=== PATIENT | female | born 1935 | race Native Hawaiian/Other Pacific Islander ===

== ENCOUNTER 2019-04-18 17:04 | Emergency (ER) | END 2019-04-18 19:23 | disposition home or self-care (01) | DX: R00.2 Palpitations (principal); I35.0 Nonrheumatic aortic (valve) stenosis; E11.9 Type 2 diabetes mellitus without complications; N28.9 Disorder of kidney and ureter, unspecified; I10 Essential (primary) hypertension; Z88.2 Allergy status to sulfonamides; Z79.4 Long term (current) use of insulin; Z79.899 Other long term (current) drug therapy; Z79.82 Long term (current) use of aspirin ==

== ENCOUNTER 2021-06-18 20:19 | Inpatient (IN) | payer MEDICARE, OTHER ==
[~2021-06-18] VITALS: Ht 160 cm; Wt 59.0 kg
[~2021-06-18 20:19] MED LIST: AMLO10TA4 PO; APIX2.5T PO; ATOR20TA PO; BIMA2.5D5 EACHEYE; CALC0.253 PO; FURO-151 PO; HYDR-4075 PO; INSU200I4 SQ; LOPE2TAB25 PO; LOSA100T31 PO; OMEG1CAP55 PO; RANI150C4 PO; UBIQ100C2 PO
[2021-06-18 21:02] LABS: HEMATOCRIT 32.8 % (31.2-41.9); MEAN CORPUSCULAR HEMOGLOBIN 29.7 uug (24.7-32.8); MEAN CORPUSCULAR VOLUME 92.1 fL (75.5-95.3); PLATELET COUNT (AUTO) 272 K/uL (179-408)
[2021-06-18 21:45] LABS: ALANINE AMINOTRANSFERASE 18 U/L (14-59); ALKALINE PHOSPHATASE 80 U/L (50-136); ASPARTATE AMINOTRANSFERASE 14 U/L (15-37); BILIRUBIN,DIRECT 0.1 mg/dL (0.0-0.2); BILIRUBIN,TOTAL 0.3 mg/dL (0.2-1.0); CARBON DIOXIDE 18 mmol/L (21-32); CHLORIDE 97 mmol/L (98-107); CREATININE 4.3 mg/dL (0.6-1.3); GLUCOSE 239 mg/dL (74-106); TOTAL PROTEIN, SERUM 7.4 g/dL (6.4-8.2); UREA NITROGEN, BLOOD 70 mg/dL (7-18)
[2021-06-18 21:52] LABS: POTASSIUM 6.8 mmol/L (3.5-5.1)
[2021-06-18] MEDS ORDERED: CALCIUM GLUCONATE IV 1 GM in IV NORMAL SALINE 100 ML IV ONE ×2 (22:30→23:30)
[2021-06-18] MEDS ORDERED: ALBUTEROL SULFATE 2.5 MG/3 ML NEBU NEB ONE (22:30)
[2021-06-18] MEDS ORDERED: INSULIN REGULAR, HUMAN 10 UNIT in IV NORMAL SALINE 100 ML IV ONE ×2 (22:30)
[2021-06-18] MEDS ORDERED: DEXTROSE 50% 50 ML DISP.SYRIN IV ONE (22:30)
[2021-06-18] MEDS ORDERED: CALCIUM GLUCONATE 1 GM/10 ML VIAL IV ONE (22:41)
[2021-06-18] MEDS ORDERED: ALBUTEROL SULFATE 2.5 MG/ 0.5 ML NEBU ONE (22:56)
--- NOTE | 2021-06-18 22:59 | NUR ---
PAGED EPIC PANEL POLISHER NUMERAL, WAITING FOR DR JARAMILLO TO CALL BACK.
--- NOTE | 2021-06-18 23:15 | NUR ---
DR MAR SPOKE TO DR JARAMILLO WHO ACCEPTS PATIENT TO INPATIENT TELE.
--- NOTE | 2021-06-18 23:35 | NUR ---
PATIENT AND DAUGHTER UNABLE TO RECALL HOME MEDICATIONS AT THIS TIME.
[2021-06-18 23:40] LABS: *BILIRUBIN,URIN NEGATIVE (NEGATIVE); *BLOOD, URINE NEGATIVE (NEGATIVE); *COLOR,URINE YELLOW (YELLOW); *KETONES,URINE TRACE (NEGATIVE); *UROBILINOGEN,URINE 0.2 E.U./dl (NORMAL); LEUKOCYTE ESTERASE ,URINE TRACE (NEGATIVE); NITRITE, URINE NEGATIVE (NEGATIVE); UGLUCOSE NEGATIVE (NEGATIVE)
[2021-06-18 23:46] LABS: *CLARITY,URINE HAZY (CLEAR)
[2021-06-19] VITALS (9 sets, daily range): BP systolic 137–189; BP diastolic 34–97
[2021-06-19 00:07] LABS: BACTERIA,URINE MODERATE /HPF (NONE SEEN); SQUAMOUS EPITHELIAL CELL,UR MODERATE /HPF (NONE SEEN)
[2021-06-19] MEDS ORDERED: CALCIUM GLUCONATE 1 GM/10 ML VIAL IV ONE (00:27)
[2021-06-19] MEDS ORDERED: INSULIN REGULAR, HUMAN 300 UNIT/3 ML VIAL ONE (01:14)
[2021-06-19] MEDS ORDERED: INSULIN REGULAR, HUMAN 300 UNIT/3 ML VIAL IV ONE (01:15)
--- NOTE | 2021-06-19 01:20 | NUR ---
TRANSFERED PATIENT TO 3RD FLOOR VIA GURNY WITH NO DISTRESS NOTED.
--- NOTE | 2021-06-19 01:25 | NUR ---
Received patient via gurney. Pt is admitted to Room 329-Tele, under care of Dr. Garnett with admitting diagnosis of hyperkalemia. AAOX4, Vietnamese speaking and limited Kazakh. Able to ambulate to the bed, however, gait is unsteady. Able to make needs known.Established nurse patient rapport. Oriented patient to room, bed and call light button. Initial assessment done. Attached to telemonitor, showing sinus bradycardia - sinus tachycardia. On room air. IV access at R hand 20 gauge, patent and intact. No skin issues noted. Safety and aspiration precautions initiated. Will continue to monitor.
[2021-06-19] MEDS ORDERED: ACETAMINOPHEN 325 MG TABLET PO PRN (02:00)
[2021-06-19] MEDS ORDERED: HYDROCODONE/APAP 5-325MG TABLET PO PRN (02:00)
[2021-06-19] MEDS ORDERED: ONDANSETRON 4 MG/2 ML VIAL IV PRN (02:00)
--- NOTE | 2021-06-19 04:15 | NUR ---
Per ER nurse and patient, patient wishes to have a DNR status, daughter will bring paper working tomorrow together with medication list. Daughter's name is Maribel, contact number is [phone].
[2021-06-19] MEDS: PANTOPRAZOLE SODIUM 40 MG TABLET.DR PO SCH (06:08)
--- NOTE | 2021-06-19 06:43 | NUR ---
Patient slept intermittently through the night. Sinus bradycardia on telemonitor, with occasional episodes of sinus junction. No acute distress noted. IV access patent and intact. All needs attended to and met. Safety precautions maintained. Will endorse to day shift.
[2021-06-19] MEDS ORDERED: SODIUM BICARBONATE 8.4% 100 MEQ in IV D5 1/2 NS 1000 ML 1,000 ML IV PRN (06:45)
[2021-06-19] MEDS ORDERED: SODIUM POLYSTYRENE SULFONATE 15 G/60 ML LIQUID UDC PO ONE (06:45)
[2021-06-19 07:29] LABS: ALANINE AMINOTRANSFERASE 19 U/L (14-59); ALKALINE PHOSPHATASE 72 U/L (50-136); ASPARTATE AMINOTRANSFERASE 15 U/L (15-37); BILIRUBIN,TOTAL 0.3 mg/dL (0.2-1.0); CARBON DIOXIDE 17 mmol/L (21-32); CHLORIDE 97 mmol/L (98-107); CHOLESTEROL 94 mg/dL (<200); CREATININE 4.6 mg/dL (0.6-1.3); GLUCOSE 239 mg/dL (74-106); HDL CHOLESTEROL 37 mg/dL (40-60); MAGNESIUM 3.2 mg/dL (1.8-2.4); PHOSPHOROUS 6.9 mg/dL (2.5-4.9); POTASSIUM 5.9 mmol/L (3.5-5.1); TOTAL PROTEIN, SERUM 7.1 g/dL (6.4-8.2); TRIGLYCERIDES 112 MG/DL (30-150); UREA NITROGEN, BLOOD 76 mg/dL (7-18)
[2021-06-19] MEDS ORDERED: CALCIUM GLUCONATE IV 1 GM in IV NORMAL SALINE 100 ML IV ONE (07:45)
[2021-06-19 07:52] LABS: THYROID STIMULATING HORMONE 4.161 mIU/mL (0.358-3.740)
[2021-06-19] MEDS: SODIUM BICARBONATE 8.4% 100 MEQ in IV D5 1/2 NS 1000 ML 1,000 ML IV PRN (10:39)
[2021-06-19] MEDS ORDERED: CEFTRIAXONE 1 G in IV DEXTROSE 5% 50 ML IV SCH (12:30)
[2021-06-19] MEDS ORDERED: NIFE90TA2 PO (15:22)
[2021-06-19] MEDS ORDERED: CARV6.252 PO (15:23)
[2021-06-19] MEDS ORDERED: ATOR20TA PO (15:24)
--- NOTE | 2021-06-19 15:50 | NUR ---
PT BROUGHT DOWN TO CCU FOR CLOSE MONITORING, PT DX HYPERKALEMIA. MED LIST GIVEN TO PHARMACY, PT IN BED 2, A/OX4, CALL LIGHT WITHIN REACH, UNSTEADY GAIT, BRP, PT ON ROOM AIR, PENDING STAT EKG AND CMP AND BLOOD CULTURES
--- NOTE | 2021-06-19 15:50 | NUR ---
Patient transferred to CCU. Patient awake, alert and orientedx4. On room air. No signs of acute distress. Patient wheeled to CCU.
[2021-06-19] MEDS ORDERED: NIFE30TA2 PO (16:03)
[2021-06-19] MEDS ORDERED: FURO40TA5 PO ×2 (16:04→16:05)
[2021-06-19] MEDS ORDERED: APIX2.5T PO (16:04)
[2021-06-19] MEDS ORDERED: HYDR100T27 PO (16:06)
[2021-06-19] MEDS ORDERED: LOSA100T31 PO (16:07)
[2021-06-19] MEDS ORDERED: NOVOLOG SS (16:12)
[2021-06-19] MEDS ORDERED: INSULIN DEGLUDEC (16:12)
[2021-06-19 16:25] LABS: HEMATOCRIT 34.3 % (31.2-41.9); MEAN CORPUSCULAR HEMOGLOBIN 29.4 uug (24.7-32.8); MEAN CORPUSCULAR VOLUME 97.1 fL (75.5-95.3); PLATELET COUNT (AUTO) 125 K/uL (179-408)
[2021-06-19 16:28] LABS: ALANINE AMINOTRANSFERASE 13 U/L (14-59); ALKALINE PHOSPHATASE 68 U/L (50-136); ASPARTATE AMINOTRANSFERASE 15 U/L (15-37); BILIRUBIN,TOTAL 0.2 mg/dL (0.2-1.0); CARBON DIOXIDE 19 mmol/L (21-32); CHLORIDE 97 mmol/L (98-107); CREATININE 4.7 mg/dL (0.6-1.3); GLUCOSE 350 mg/dL (74-106); MAGNESIUM 3.3 mg/dL (1.8-2.4); PHOSPHOROUS 7.2 mg/dL (2.5-4.9); POTASSIUM 5.2 mmol/L (3.5-5.1); TOTAL PROTEIN, SERUM 7.4 g/dL (6.4-8.2); UREA NITROGEN, BLOOD 75 mg/dL (7-18)
[2021-06-19] MEDS: hydrALAZINE HCL 25 MG TABLET PO PRN (16:38)
[2021-06-19] MEDS ORDERED: DEXTROSE 50% 50 ML DISP.SYRIN IV PRN (18:00)
--- NOTE | 2021-06-19 18:00 | NUR ---
PER FAMILY, PT IS INSULIN DEPENDANT AT HOME, CONTACTED [facility] TO ORDER INSULIN AND ACCUCHECKS. ORDERS IN PLACE. NOTIFIED [facility] TO RECONCILE MEDICATIONS. WILL CONTINUE TO MONITOR.
[2021-06-19] MEDS: BLOOD SUGAR DIAGNOSTIC 1 EACH STRIP VI SCH ×2 (18:02→20:58)
[2021-06-19] MEDS: INSULIN REGULAR, HUMAN 300 UNIT/3 ML VIAL SQ PRN ×2 (18:08→21:06)
--- NOTE | 2021-06-19 19:30 | NUR ---
Report received; patient AAO on room air, NAD noted. Up to [facility] with assist. Voided clear yellow urine. Assessment done. Caitlin Obando notified of patient's home meds; SALES RECEPTIONIST will reconcile medications. Addendum: 06/19/21 at 232 by RODNEY RAMIREZ RN Amended: Links added. Addendum: 06/19/21 at 2328 by RODNEY RAMIREZ RN Amended: Links added. Addendum: 06/19/21 at 2329 by RODNEY RAMIREZ RN Amended: Links added. Addendum: 06/19/21 at 2329 by RODNEY RAMIREZ RN Amended: Links added. Addendum: 06/19/21 at 2329 by RODNEY RAMIREZ RN Amended: Links added. Addendum: 06/19/21 at 0 by RODNEY RAMIREZ RN Amended: Links added. Addendum: 06/19/21 at 2329 by RODNEY RAMIREZ RN Amended: Links added. Addendum: 06/19/21 at 0 by RODNEY RAMIREZ RN Amended: Links added.
--- NOTE | 2021-06-19 21:48 | NUR ---
Caitlin Obando NP notified of patient's BPs in the 170's systole. Order received. Addendum: 06/19/21 at 232 by RODNEY RAMIREZ RN Amended: Links added. Addendum: 06/19/21 at 232 by RODNEY RAMIREZ RN Amended: Links added. Addendum: 06/19/21 at 2329 by RODNEY RAMIREZ RN Amended: Links added. Addendum: 06/19/21 at 2329 by RODNEY RAMIREZ RN Amended: Links added. Addendum: 06/19/21 at 2329 by RODNEY RAMIREZ RN Amended: Links added. Addendum: 06/19/21 at 2329 by RODNEY RAMIREZ RN Amended: Links added. Addendum: 06/19/21 at 2330 by RODNEY RAMIREZ RN Amended: Links added. Addendum: 06/19/21 at 2330 by RODNEY RAMIREZ RN Amended: Links added. Addendum: 06/19/21 at 2330 by RODNEY RAMIREZ RN Amended: Links added.
[2021-06-19] MEDS ORDERED: hydrALAZINE HCL 50 MG TABLET PO STA (21:55)
[2021-06-19] MEDS ORDERED: CARVEDILOL 6.25 MG TABLET PO SCH (22:30)
[2021-06-19] MEDS ORDERED: CARVEDILOL 6.25 MG TABLET ONE (22:58)
[2021-06-19] MEDS: APIXABAN 2.5 MG TABLET PO SCH (23:06)
[2021-06-20] VITALS (17 sets, daily range): BP systolic 153–186; BP diastolic 50–81
[2021-06-20] MEDS ORDERED: SODIUM BICARBONATE 8.4% 50 MEQ/50 ML DISP.SYRIN IV ONE (00:35)
[2021-06-20] MEDS: SODIUM BICARBONATE 8.4% 100 MEQ in IV D5 1/2 NS 1000 ML 1,000 ML IV PRN ×2 (00:41→12:22)
--- NOTE | 2021-06-20 01:00 | NUR ---
SBPs 170's-180's. Patient asymptomatic. Up to [facility] with aasist. Hydralazine po PRN given.
[2021-06-20] MEDS: hydrALAZINE HCL 25 MG TABLET PO PRN (01:19)
--- NOTE | 2021-06-20 02:10 | NUR ---
Remains hypertensive; BPs 179/74-183/63. Spoke to Neisha Hathaway. Order received.
[2021-06-20] MEDS ORDERED: hydrALAZINE HCL 20 MG/1 ML VIAL IV ONE (03:30)
--- NOTE | 2021-06-20 03:30 | NUR ---
BP 186/81 HR=75 SR, patient sleeping. Hydralazine IV given. Will continue to monitor closely.
--- NOTE | 2021-06-20 05:30 | NUR ---
Patient's BPs remain in the 170's systole. Spoke to Neisha Hathaway, no orders.
[2021-06-20 05:43] LABS: HEMATOCRIT 32.1 % (31.2-41.9); MEAN CORPUSCULAR HEMOGLOBIN 29.9 uug (24.7-32.8); MEAN CORPUSCULAR VOLUME 91.6 fL (75.5-95.3); PLATELET COUNT (AUTO) 258 K/uL (179-408)
[2021-06-20 06:15] LABS: ALANINE AMINOTRANSFERASE 8 U/L (14-59); ALKALINE PHOSPHATASE 62 U/L (50-136); ASPARTATE AMINOTRANSFERASE 13 U/L (15-37); BILIRUBIN,TOTAL 0.3 mg/dL (0.2-1.0); CARBON DIOXIDE 24 mmol/L (21-32); CHLORIDE 101 mmol/L (98-107); CREATINE KINASE, TOTAL 46 U/L (26-192); CREATININE 4.5 mg/dL (0.6-1.3); GLUCOSE 256 mg/dL (74-106); MAGNESIUM 2.9 mg/dL (1.8-2.4); PHOSPHOROUS 6.6 mg/dL (2.5-4.9); POTASSIUM 4.2 mmol/L (3.5-5.1); TOTAL PROTEIN, SERUM 6.8 g/dL (6.4-8.2); UREA NITROGEN, BLOOD 73 mg/dL (7-18)
[2021-06-20] MEDS: hydrALAZINE HCL 50 MG TABLET PO SCH ×2 (06:36→14:32)
[2021-06-20] MEDS: PANTOPRAZOLE SODIUM 40 MG TABLET.DR PO SCH (06:36)
--- NOTE | 2021-06-20 06:45 | NUR ---
Up to [facility] with assist. Voided; urine sent to lab. Remains AAO, NAD noted despite high BPs. C/o being tired. AM care rendered. metals analyst: in the 70's.
[2021-06-20] MEDS: BLOOD SUGAR DIAGNOSTIC 1 EACH STRIP VI SCH (07:01)
[2021-06-20 07:14] LABS: *BILIRUBIN,URIN NEGATIVE (NEGATIVE); *BLOOD, URINE NEGATIVE (NEGATIVE); *CLARITY,URINE CLEAR (CLEAR); *COLOR,URINE YELLOW (YELLOW); *KETONES,URINE NEGATIVE (NEGATIVE); *UROBILINOGEN,URINE 0.2 E.U./dl (NORMAL); LEUKOCYTE ESTERASE ,URINE NEGATIVE (NEGATIVE); NITRITE, URINE NEGATIVE (NEGATIVE); UGLUCOSE TRACE (NEGATIVE)
[2021-06-20 07:20] LABS: BACTERIA,URINE NONE SEEN /HPF (NONE SEEN); RBC,URINE 0-3 /HPF (0-3); SQUAMOUS EPITHELIAL CELL,UR FEW /HPF (NONE SEEN); WBC,URINE 0-3 /HPF (0-3)
[2021-06-20 07:21] LABS: *URINE TOTAL PROTEIN RANDOM 173.9 mg/dL (<150/24HR)
[2021-06-20] MEDS ORDERED: CARVEDILOL 6.25 MG TABLET PO SCH (08:00)
--- NOTE | 2021-06-20 08:00 | NUR ---
received pt in bed resting, pleasant mood, pt a/ox4, on RA, saturating at 97%, no signs of distress, no report of pain. Pt ambulatory with assist, using bedside commode. IV access on right hand 20g, right AC 20g infusing D5W 1/2NS sodium Bicarb at 100ml/hr. bed low and locked, call light within reach, will continue to monitor.
[2021-06-20 08:06] LABS: HEPATITIS B SURFACE AG Negative (Negative)
[2021-06-20] MEDS: APIXABAN 2.5 MG TABLET PO SCH (08:53)
[2021-06-20] MEDS: INSULIN REGULAR, HUMAN 300 UNIT/3 ML VIAL SQ PRN (08:55)
[2021-06-20] MEDS ORDERED: hydrALAZINE HCL 50 MG TABLET PO SCH (09:00)
[2021-06-20] MEDS ORDERED: NIFEdipine XL 90 MG TABSR PO SCH (09:00)
[2021-06-20] MEDS ORDERED: DEXTROSE 50% 50 ML DISP.SYRIN IV PRN (09:30)
[2021-06-20] MEDS ORDERED: INSULIN REGULAR, HUMAN 300 UNITS/3 ML VIAL SQ PRN (09:30)
[2021-06-20] MEDS ORDERED: INSULIN REGULAR, HUMAN 300 UNIT/3 ML VIAL SQ PRN (09:30)
--- NOTE | 2021-06-20 10:00 | NUR ---
Pt walked to restroom and back with assist. no signs of dizziness, tiredness, VSS. Primary notified, possible DC pending, will continue to monitor.
[2021-06-20] MEDS ORDERED: BLOOD SUGAR DIAGNOSTIC 1 EACH STRIP VI SCH (11:30)
--- NOTE | 2021-06-20 16:00 | NUR ---
Pt discharged home with all belongings. VSS, pt ambulatory with assist, uses walker at home, brought down to car via wheelchair. pt accompanied by daughter, pt a/ox4, on room air, IV access removed, ID band removed. exit care instructions and education given to patient and daughter, CD of images and readings printed. Daughter questions answered and pt left with no concerns.
[2021-06-20] MEDS ORDERED: ATORVASTATIN 20 MG TABLET PO SCH (21:00)
[2021-06-20] MEDS ORDERED: NIFEdipine XL 30 MG TABSR PO SCH (21:00)
[2021-06-22 10:06] LABS: A/G RATIO 0.9 (0.7-1.7); ALBUMIN 2.9 g/dL (2.9-4.4); ALPHA-1-GLOBULIN 0.2 g/dL (0.0-0.4); ALPHA-2-GLOBULIN 0.9 g/dL (0.4-1.0); BETA GLOBULIN 0.8 g/dL (0.7-1.3); GAMMA GLOBULIN 1.4 g/dL (0.4-1.8); GLOBULIN, TOTAL 3.3 g/dL (2.2-3.9); M-SPIKE 0.4 g/dL (Not Observed)
== END 2021-06-20 15:50 | disposition hospice, home (50) | DRG 640 ==
LOC: ER 20:21 → TELE3 23:55 → CCU 06-19 16:01
PROVIDERS: ADMIT Nurse Practitioner Acute Care; ATTEND Nurse Practitioner Acute Care
DX: E87.5 Hyperkalemia (principal); N17.0 Acute kidney failure with tubular necrosis; D68.69 Other thrombophilia; I13.0 Hypertensive heart and chronic kidney disease with heart failure and stage 1 through stage 4 chronic kidney disease, or unspecified chronic kidney disease; I49.5 Sick sinus syndrome; E87.1 Hypo-osmolality and hyponatremia; I48.0 Paroxysmal atrial fibrillation; D63.8 Anemia in other chronic diseases classified elsewhere; E86.1 Hypovolemia; E78.5 Hyperlipidemia, unspecified; Z79.01 Long term (current) use of anticoagulants; Z79.4 Long term (current) use of insulin; Z51.5 Encounter for palliative care; Z90.710 Acquired absence of both cervix and uterus; E83.41 Hypermagnesemia; Z88.2 Allergy status to sulfonamides; E11.22 Type 2 diabetes mellitus with diabetic chronic kidney disease; I50.9 Heart failure, unspecified; N18.9 Chronic kidney disease, unspecified; Z87.891 Personal history of nicotine dependence
CPT/HCPCS: 36415; 71045; 76770; 83605; 83735; 83970; 84100; 84155; 84156; 84165; 84300; 84443; 84484; 85025; 86704; 86803; 87040; 87086; 87340; 87806; 93005; 93307; A4663; G0378; J0360; J0610; J0696; J1815; J3490; J7040; J7060